=== PATIENT | male | born 1965 | race African-American/Black ===

== ENCOUNTER 2020-11-04 19:30 | Emergency (ER) | payer MEDICARE, MEDICAID ==
[~2020-11-04] VITALS: Ht 165.1 cm; Wt 90.0 kg
[2020-11-04 19:41] VITALS: BP 159/87
[2020-11-04] MEDS ORDERED: METOCLOPRAMIDE HCL 10MG/2ML VIAL IV STA (21:01)
[2020-11-04] MEDS ORDERED: PANTOPRAZOLE SODIUM 40 MG/VIAL IV STA (21:01)
[2020-11-04] MEDS ORDERED: SODIUM CHLORIDE 0.9% 1,000 ML IV ONE (21:15)
== END 2020-11-04 21:27 | disposition left against medical advice (07) ==
LOC: ER 19:30
DX: R10.13 Epigastric pain (principal); R11.2 Nausea with vomiting, unspecified; I10 Essential (primary) hypertension
CPT/HCPCS: 99281; J7030

== ENCOUNTER 2021-08-28 10:59 | Emergency (ER) | payer MEDICARE, MEDICAID ==
[~2021-08-28] VITALS: Ht 165.1 cm; Wt 82.0 kg
[2021-08-28 11:12] VITALS: BP 138/73
[2021-08-28] MEDS ORDERED: SULF1TAB48 MT (22:01)
== END 2021-08-28 14:12 | disposition home or self-care (01) ==
LOC: ER 10:59
DX: L03.011 Cellulitis of right finger (principal); I10 Essential (primary) hypertension
CPT/HCPCS: 99281

== ENCOUNTER 2021-08-28 16:58 | Emergency (ER) | payer MEDICARE, MEDICAID ==
[~2021-08-28] VITALS: Ht 167.6 cm; Wt 75.0 kg
[2021-08-28] MEDS ORDERED: LIDOCAINE HCL/PF 1% 10 MG/ML 5ML VIAL INFIL ONE (19:45)
[2021-08-28] MEDS ORDERED: LIDOCAINE HCL 1% 20ML VIAL (Pyxis) INJ INFIL NR (19:45)
[2021-08-28] MEDS ORDERED: TETANUS, DIPHTHERIA, PERTUSSIS VAC/PF 0.5ML (>10YR OLD) IM ONE (19:45)
[2021-08-28] MEDS ORDERED: BACITRACIN ZINC OINT UDPKT TOP ONE (19:45)
[2021-08-28] MEDS ORDERED: SULFAMETHOXAZOLE/TRIMETHOPRIM 800/160MG TABLET PO ONE (22:00)
[2021-08-28] MEDS ORDERED: SULF1TAB48 MT (22:01)
[2021-08-28 22:24] VITALS: BP 130/78
== END 2021-08-28 22:24 | disposition home or self-care (01) ==
LOC: ER 16:58
DX: L03.011 Cellulitis of right finger (principal); I10 Essential (primary) hypertension
CPT/HCPCS: 10060; 73130; 90471; 90715; 99283; J3490

== ENCOUNTER 2021-08-29 11:53 | Emergency (ER) | payer MEDICARE, MEDICAID ==
[~2021-08-29] VITALS: Ht 167.6 cm; Wt 82.0 kg
[~2021-08-29 11:53] MED LIST: SULF1TAB48 MT
[2021-08-29 12:01] VITALS: BP 118/84
== END 2021-08-29 12:31 | disposition home or self-care (01) ==
LOC: ER 11:53
DX: L03.011 Cellulitis of right finger (principal); I10 Essential (primary) hypertension
CPT/HCPCS: 99283

== ENCOUNTER 2021-12-06 18:07 | Emergency (ER) | payer MEDICARE, MEDICAID ==
[~2021-12-06] VITALS: Ht 165.1 cm; Wt 82.0 kg
[2021-12-06 21:36] VITALS: BP 125/78
== END 2021-12-06 21:42 | disposition home or self-care (01) ==
LOC: ER 18:07
DX: M25.522 Pain in left elbow (principal); I10 Essential (primary) hypertension; V73.6XXA Passenger on bus injured in collision with car, pick-up truck or van in traffic accident, initial encounter; Y93.89 Activity, other specified; Y92.488 Other paved roadways as the place of occurrence of the external cause
CPT/HCPCS: 73070; 73090; 99284

== ENCOUNTER 2023-06-14 09:50 | Emergency (ER) | payer MEDICAID, MEDICARE ==
[~2023-06-14] VITALS: Ht 165.1 cm; Wt 75.0 kg
[2023-06-14 10:04] VITALS: BP 117/71; PULSE 75; RESP 18; TEMP 98.3; O2SAT 99
[2023-06-14] MEDS ORDERED: LIDO700A30 TP (14:50)
== END 2023-06-14 15:00 | disposition home or self-care (01) ==
LOC: ER 10:06
DX: S30.1XXA Contusion of abdominal wall, initial encounter (principal); S39.011A Strain of muscle, fascia and tendon of abdomen, initial encounter; I10 Essential (primary) hypertension; X58.XXXA Exposure to other specified factors, initial encounter; Y93.89 Activity, other specified; Y92.89 Other specified places as the place of occurrence of the external cause; Y99.8 Other external cause status
CPT/HCPCS: 99282

== ENCOUNTER 2024-12-14 15:54 | Emergency (ER) | payer MEDICARE, MEDICAID ==
[~2024-12-14] VITALS: Ht 157.5 cm; Wt 73.0 kg
[~2024-12-14 15:54] MED LIST changes: +LIDO700A30 TP
[2024-12-14 16:02] VITALS: O2SAT 99
[2024-12-14] MEDS ORDERED: IBUP-2028 MT (17:20)
[2024-12-14] MEDS ORDERED: ACET-2708 MT (17:20)
[2024-12-14 17:51] VITALS: BP 138/70; PULSE 70; RESP 18; TEMP 36.7; O2SAT 99
== END 2024-12-14 17:51 | disposition home or self-care (01) ==
LOC: ER 15:54
DX: M25.572 Pain in left ankle and joints of left foot (principal); I10 Essential (primary) hypertension; Z79.899 Other long term (current) drug therapy
CPT/HCPCS: 99284; 73610; 73630; A6449

== ENCOUNTER 2025-03-23 23:08 | Emergency (ER) | payer MEDICARE, MEDICAID ==
[~2025-03-23] VITALS: Ht 167.6 cm; Wt 73.0 kg
[~2025-03-23 23:08] MED LIST changes: +ACET-2708 MT; +IBUP-2028 MT
[2025-03-24 00:03] VITALS: O2SAT 98
[2025-03-24 00:12] LABS: BASOPHILS % 0.5 % (0.0-2.0); EOSINOPHILS % 0.3 % (0.0-5.0); HEMATOCRIT. 40.9 % (42.0-52.0); HEMOGLOBIN. 12.8 g/dL (14.0-18.0); LYMPHOCYTES % 8.4 % (20.0-50.0); MEAN PLATELET VOLUME 9.0 fl (7.4-10.4); MONOCYTES % 4.4 % (2.0-8.0); NEUTROPHILS % 86.4 % (40.0-76.0); PLATELET 241 x1000/uL (130-400); RED BLOOD CELL COUNT 5.55 mill/uL (4.7-6.1); RED CELL DISTRIBUTION WIDTH 14.4 % (11.6-14.6)
[2025-03-24 00:28] LABS: CREATININE 1.0 mg/dL (0.6-1.3); UREA NITROGEN BLOOD 9 mg/dL (9-23)
[2025-03-24 00:30] LABS: ASPARTATE AMINOTRANSFERASE 13 IU/L (<34); BILIRUBIN DIRECT 0.1 mg/dL (<=3.0); BILIRUBIN TOTAL 0.5 mg/dL (0.1-1.0); PROTEIN TOTAL 6.8 g/dL (6.0-8.3)
[2025-03-24] MEDS ORDERED: FAMO-135 MT (05:28)
[2025-03-24] MEDS ORDERED: ONDA4TAB50 MT (05:28)
[2025-03-24 05:33] VITALS: BP 122/70; PULSE 73; RESP 12; TEMP 36.5; O2SAT 97
== END 2025-03-24 05:46 | disposition home or self-care (01) ==
LOC: ER 23:08
DX: A05.9 Bacterial foodborne intoxication, unspecified (principal); A08.4 Viral intestinal infection, unspecified; Z79.899 Other long term (current) drug therapy
CPT/HCPCS: 36415; 80048; 80076; 85025; 99285

== ENCOUNTER 2025-04-15 09:06 | Emergency (ER) | payer MEDICARE, MEDICAID ==
[~2025-04-15] VITALS: Ht 167.6 cm; Wt 82.0 kg
[~2025-04-15 09:06] MED LIST changes: +FAMO-135 MT; +ONDA4TAB50 MT
[2025-04-15 09:41] VITALS: O2SAT 98
[2025-04-15] MEDS ORDERED: IBUP-1455 MT (11:31)
[2025-04-15] MEDS ORDERED: LIDO700A30 TP (11:31)
[2025-04-15 11:55] VITALS: BP 120/72; PULSE 72; RESP 15; TEMP 36.9; O2SAT 98
== END 2025-04-15 11:57 | disposition home or self-care (01) ==
LOC: ER 09:06
DX: S20.212A Contusion of left front wall of thorax, initial encounter (principal); I10 Essential (primary) hypertension; W19.XXXA Unspecified fall, initial encounter; Y93.89 Activity, other specified; Y92.89 Other specified places as the place of occurrence of the external cause; Y99.8 Other external cause status
CPT/HCPCS: 71101; 93005; 99283